=== PATIENT | female | born 1980 | race African-American/Black ===

== ENCOUNTER 2016-08-31 15:18 | Emergency (ER) | payer SELFPAY ==
[2016-08-31] MEDS ORDERED: NORMAL SALINE 1000 ML 1,000 ML IV ONE (15:44)
--- NOTE | 2016-08-31 16:17 | ER Document Report ---
ED Syncope and Near Syncope - General Mode of Arrival: Ambulatory Information source: Patient TRAVEL OUTSIDE OF THE [place] IN LAST 30 DAYS: No - HPI Patient complains to provider of: Fainting Symptoms prior to episode: Other - felt hot <CELIA BARRY - Last Filed: 08/31/16 16:18> <LEYLA JARVIS - Last Filed: 08/31/16 23:48> - General Chief Complaint: Near Syncope Stated Complaint: DIZZINESS Time Seen by Provider: 08/31/16 15:40 Notes: Patient is a 36-year-old female who presents to the emergency department today with complaints of a possible heat stroke prior to arrival. Patient states she was walking from her house to a gas station when she felt really hot. Patient states when EMS arrived she was told she had a low blood pressure. Patient states she feels much better now. 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 - Immunizations Hx Diphtheria, Pertussis, Tetanus Vaccination: Yes <CELIA BARRY - Last Filed: 08/31/16 16:18> Review of Systems - Review of Systems Constitutional: No symptoms reported EENT: No symptoms reported Cardiovascular: See HPI, Syncope, Dizziness, Other - hypotensive Respiratory: No symptoms reported Gastrointestinal: No symptoms reported Genitourinary: No symptoms reported Female Genitourinary: No symptoms reported Musculoskeletal: No symptoms reported Skin: No symptoms reported Hematologic/Lymphatic: No symptoms reported Neurological/Psychological: No symptoms reported -: Yes All other systems reviewed and negative <CELIA BARRY - Last Filed: 08/31/16 16:18> Physical Exam - Vital signs Interpretation: Hypotensive <CELIA BARRY - Last Filed: 08/31/16 16:18> <LEYLA JARVIS - Last Filed: 08/31/16 23:48> - Vital signs Vitals: Temp 97.5 F 08/31/16 15:28 - Notes Notes: Physical Exam: General: Alert, appears well. HEENT: Normocephalic. Atraumatic. PERRL. Extraocular movements intact. Oropharynx clear. Dry mucous membranes. Neck: Supple. Non-tender. Respiratory: No respiratory distress. Clear and equal breath sounds bilaterally. Cardiovascular: Regular rate and rhythm. Abdominal: Normal Inspection. Non-tender. No distension. Normal Bowel Sounds. Back: Non-tender. No deformity or step off. Extremities: Moves all four extremities. Upper extremities: Normal inspection. Normal ROM. Lower extremities: Normal inspection. No edema. Normal ROM. Neurological: Normal cognition. AAOx4. Normal speech. Psychological: Normal affect. Normal Mood. Skin: Warm. Dry. Normal color. (CELIA BARRY) Course - Laboratory Result Diagrams: 08/31/16 16:10 08/31/16 16:10 <CELIA BARRY - Last Filed: 08/31/16 16:18> - Laboratory Result Diagrams: 08/31/16 16:10 08/31/16 16:10 <LEYLA JARVIS - Last Filed: 08/31/16 23:48> - Re-evaluation Re-evalutation: 08/31/16 17:26 Patient is feeling better at this time and would like to go home. No acute changes on blood work or urine. Vitals are stable. No acute findings on EKG. Patient is not . Stable for discharge. Stay hydrated. Follow-up with PMD. (LEYLA JARVIS) - Vital Signs Vital signs: Temp Pulse Resp BP Pulse Ox 97.5 F 71 17 105/81 100 08/31/16 15:28 08/31/16 15:30 08/31/16 17:30 08/31/16 17:30 08/31/16 17:30 - Laboratory Laboratory results interpreted by sd: 08/31/16 08/31/16 08/31/16 16:10 16:10 17:06 Hgb 10.9 L Hct 34.0 L Chloride 108 H Urine Protein 30 H Urine Ketones TRACE H Discharge <CELIA BARRY - Last Filed: 08/31/16 16:18> <LEYLA JARVIS - Last Filed: 08/31/16 23:48> - Discharge Clinical Impression: Dizziness, Dehydration Condition: Stable Disposition: HOME, SELF-CARE Instructions: Dizziness ([facility]), Heat Exhaustion ([facility]) Forms: Return to Work Referrals: JANI GARCIA DO [Primary Care Provider] - Follow up as needed Scribe Attestation: 08/31/16 23:48 I personally performed the services described in the documentation, reviewed and edited the documentation which was dictated to the scribe in my presence, and it accurately records my words and actions. (LEYLA JARVIS) Scribe Documentation - Scribe Written by Garry:: Garry Silva, 08/31/2016 1627 acting as scribe for :: Sarwat <CELIA BARRY - Last Filed: 08/31/16 16:18>
[2016-08-31 16:25] LABS: ABSOLUTE LYMPHOCYTES (AUTO) 0.8 10^3/uL (0.5-4.7); ABSOLUTE MONOCYTES (AUTO) 0.3 10^3/uL (0.1-1.4); ABSOLUTE NEUT (AUTO) 3.7 10^3/uL (1.7-8.2); BASOPHILS % (AUTO) 0.5 % (0-2); EOSINOPHILS % (AUTO) 0.4 % (0-6); HEMOGLOBIN 10.9 g/dL (12.0-15.5); HGB HCT DIFFERENCE -1.3; LYMPHOCYTES % (AUTO) 17.1 % (13-45); MEAN CORPUSCULAR HGB CONC 32.2 g/dL (32.0-36.0); MEAN CORPUSCULAR VOLUME 87 fl (80-97); MONOCYTES % (AUTO) 5.9 % (3-13); RED CELL DISTRIBUTION WIDTH 13.3 % (11.5-14.0); SEGMENTED NEUTROPHILS % (AUTO) 76.1 % (42-78); WHITE BLOOD COUNT 4.8 10^3/uL (4.0-10.5)
[2016-08-31 16:42] LABS: ALANINE AMINOTRANSFERASE 29 U/L (9-52); ALBUMIN 3.9 g/dL (3.5-5.0); ALKALINE PHOSPHATASE 43 U/L (38-126); ANION GAP 11 (5-19); ASPARTATE AMINO TRANSFERASE 17 U/L (14-36); BILIRUBIN,DIRECT 0.2 mg/dL (0.0-0.4); BILIRUBIN,TOTAL 0.3 mg/dL (0.2-1.3); BLOOD UREA NITROGEN 13 mg/dL (7-20); CALCIUM 8.7 mg/dL (8.4-10.2); CARBON DIOXIDE 24 mmol/L (22-30); CHLORIDE 108 mmol/L (98-107); CREATINE KINASE 56 U/L (30-135); CREATININE RESULT 0.72 mg/dL (0.52-1.25); GLUCOSE 100 mg/dL (75-110); POTASSIUM 3.8 mmol/L (3.6-5.0); SODIUM 142.9 mmol/L (137-145); TOTAL PROTEIN 7.4 g/dL (6.3-8.2)
[2016-08-31 16:50] LABS: CREATINE KINASE MB 0.24 ng/mL (<4.55)
[2016-08-31 16:54] LABS: TROPONIN I < 0.012 ng/mL
[2016-08-31 17:31] LABS: APPEARANCE,URINE SLIGHTLY-CLOUDY; BILIRUBIN,URINE NEGATIVE (NEGATIVE); GLUCOSE, URINE NEGATIVE (NEGATIVE); KETONES,URINE TRACE mg/dL (NEGATIVE); LEUKOCYTE ESTERASE,URINE NEGATIVE (NEGATIVE); NITRITE,URINE NEGATIVE (NEGATIVE); PROTEIN,URINE 30 mg/dL (NEGATIVE); URINE SPECIFIC GRAVITY 1.012; UROBILINOGEN,URINE NEGATIVE mg/dL (<2.0)
[2016-08-31 17:43] VITALS: BP 105/81
--- NOTE | 2016-08-31 19:04 | EKG REPORT ---
SEVERITY:- OTHERWISE NORMAL ECG - SINUS RHYTHM BORDERLINE LEFT AXIS DEVIATION LOW VOLTAGE IN FRONTAL LEADS : Confirmed by: Cristopher Patton MD 31-Aug-2016 19:03:08
== END 2016-08-31 17:43 | disposition home or self-care (01) ==
LOC: ER 15:18
DX: E86.0 Dehydration (principal); R42 Dizziness and giddiness; R55 Syncope and collapse; I95.9 Hypotension, unspecified
CPT/HCPCS: 93005; 99284; 96360; 36415; 82553; 82550; 84702; 85025; 80053; 81001; 84484; 93010; J7030